=== PATIENT | female | born 1945 | race Hispanic/Latino ===

== ENCOUNTER 2018-01-20 05:58 | Day surgery (SDC) | payer MEDICARE ==
[~2018-01-20] VITALS: Ht 162.6 cm; Wt 84.3 kg
[~2018-01-20 05:58] MED LIST: SODIUM CHLORIDE 0.9% 1000ML 1,000 ML IV ONE
[2018-01-20 06:40] VITALS: BP 119/69
[2018-01-20] MEDS ORDERED: SIMV40TA5 PO (06:53)
[2018-01-20] MEDS ORDERED: TOLT2TAB PO (06:53)
[2018-01-20] MEDS ORDERED: OMEP40CA37 PO (06:53)
[2018-01-20] MEDS ORDERED: CITA-107 PO (06:53)
[2018-01-20] MEDS ORDERED: METO-391 PO (06:53)
[2018-01-20] MEDS ORDERED: LEVO50TA11 PO (06:53)
[2018-01-20] MEDS ORDERED: BUSP10TA3 PO (06:53)
[2018-01-20 07:48] VITALS: BP 104/61
[2018-01-20 07:53] VITALS: BP 107/61
[2018-01-20 08:05] VITALS: BP 114/63
== END 2018-01-20 07:55 | disposition home or self-care (01) ==
LOC: CANPRESDC → ENDO 05:58 → DAH 05:58 → ENDO 07:55
PROVIDERS: ATTEND Internal Medicine Gastroenterology
DX: K29.50 Unspecified chronic gastritis without bleeding (principal); K31.7 Polyp of stomach and duodenum; K22.8 Other specified diseases of esophagus; K31.89 Other diseases of stomach and duodenum; I10 Essential (primary) hypertension; E78.5 Hyperlipidemia, unspecified; F41.9 Anxiety disorder, unspecified; F32.9 Major depressive disorder, single episode, unspecified; B18.2 Chronic viral hepatitis C; E78.4 Other hyperlipidemia; E03.9 Hypothyroidism, unspecified; K74.60 Unspecified cirrhosis of liver; Z88.6 Allergy status to analgesic agent; Z88.0 Allergy status to penicillin; Z88.8 Allergy status to other drugs, medicaments and biological substances; Z90.49 Acquired absence of other specified parts of digestive tract; Z90.710 Acquired absence of both cervix and uterus; Z98.890 Other specified postprocedural states; Z79.899 Other long term (current) drug therapy
CPT/HCPCS: 43239; 88305; 88312; 88342; 93005; A4606; J7030